=== PATIENT | female | born 1940 | race Caucasian/White ===

== ENCOUNTER → 2016-08-31 | Outpatient (CLI) | payer MEDICARE, OTHER, BC ==
[~2016-08-31] VITALS: Ht 163.8 cm; Wt 79.8 kg
== END ==
LOC: OPSV 09:27
DX: M81.0 Age-related osteoporosis without current pathological fracture (principal); M84.68XD Pathological fracture in other disease, other site, subsequent encounter for fracture with routine healing
CPT/HCPCS: 96365; J3489; J7050

== ENCOUNTER → 2020-12-11 | Outpatient (CLI) | payer MEDICARE, BC ==
[~2020-12-11] MED LIST: ALPHAGAN P OP SO5 ML EYEBOTH; ECOTRIN81 MG PO; VITAMIN D32000 UNI1 PO; XALATAN OP SOL2.5 ML EYEBOTH; ZANTAC150 MG PO
== END ==
LOC: OPSV 11:22
DX: M81.0 Age-related osteoporosis without current pathological fracture (principal); M84.48XA Pathological fracture, other site, initial encounter for fracture
CPT/HCPCS: 96365; J3489

== ENCOUNTER → 2021-03-02 | Outpatient (CLI) | payer MEDICARE, BC | LOC: EXRD 08:08 | DX: N14.0 Analgesic nephropathy (principal); N18.30 Chronic kidney disease, stage 3 unspecified | CPT/HCPCS: 76775 ==